=== PATIENT | female | born 2000 | race Caucasian/White ===

== ENCOUNTER 2020-06-19 09:03 | Emergency (ER) | payer OTHER ==
[~2020-06-19 09:03] MED LIST: ATARAX25 MG PO; BENTYL10 MG PO; CYMBALTA20 MG PO; FLEXERIL10 MG PO; GLUCOPHAGE XR750 MG PO; LODINE400 MG PO; MACROBID100 MG PO; MEDROL 4MG DOSEP4 MG PO; PEPCID AC20 MG PO; STOOL SOFTENER100 MG PO; VIBRAMYCIN100 M1 PO; ZOFRAN8 MG PO
[2020-06-19] MEDS ORDERED: ONDANSETRON ODT4 MG PO (11:09)
== END 2020-06-19 11:22 | disposition home or self-care (01) ==
LOC: FER 09:03
DX: R11.2 Nausea with vomiting, unspecified (principal); Z87.19 Personal history of other diseases of the digestive system; Z98.84 Bariatric surgery status
CPT/HCPCS: 99283; J2405

== ENCOUNTER 2021-01-02 20:44 | Emergency (ER) | payer OTHER ==
[~2021-01-02 20:44] MED LIST changes: +ONDANSETRON ODT4 MG PO
[2021-01-02 21:53] LABS: BASOPHIL 0.5 % (0-2); EOSINOPHIL 1.3 % (0-5); HCT 39.5 % (37.0-47.0); HGB 12.7 g/dl (12.5-16.0); MCH 27.5 pg (25.0-31.0); MCHC 32.2 g/dL (32.0-36.0); MCV 85.7 fL (78.0-100.0); MONOCYTE 8.5 % (0-12); MPV 9.7 fL (6.0-9.5); NEUTROPHIL 69.3 % (41-80); NRBC 0; PLT 244 K/uL (150-400); RBC 4.61 M/uL (4.20-5.40); RDW 13.9 % (11.5-14.0); WBC 7.9 K/uL (4.0-10.5)
[2021-01-02 22:03] LABS: BILIRUBIN NEGATIVE (NEGATIVE); BLOOD NEGATIVE Ery/uL (NEGATIVE); CLARITY CLEAR (CLEAR); COLOR YELLOW (YELLOW); GLUCOSE (U) NORMAL (NORMAL); LEUKOCYTES 2+ Leu/uL (NEGATIVE); NITRITE NEGATIVE (NEGATIVE); PROTEIN NEGATIVE (NEGATIVE); SPECIFIC GRAVITY >=1.030 (1.001-1.030); UROBILINOGEN 0.2 mg/dL (0.2-1.0)
[2021-01-02 22:10] LABS: BACTERIA 1+; URINARY WBC 20-50
[2021-01-02 22:11] LABS: ALBUMIN 3.6 g/dL (3.4-5.0); BILIRUBIN - TOTAL 0.5 mg/dL (0.2-1.0); BUN/CREAT RATIO (CALC) 14.5 RATIO; CREATININE 0.62 mg/dL (0.51-0.95); GLOBULIN (CALCULATION) 3.6 g/dL; POTASSIUM 3.9 mmol/L (3.5-5.1); TOTAL PROTEIN 7.2 g/dL (6.4-8.2)
[2021-01-02] MEDS ORDERED: ONDANSETRON ODT4 MG PO (23:36)
== END 2021-01-02 23:50 | disposition home or self-care (01) ==
LOC: FER 20:44
PROVIDERS: Emergency Medicine
DX: U07.1 COVID-19 (principal); R10.11 Right upper quadrant pain; Z98.84 Bariatric surgery status
CPT/HCPCS: 36415; 80053; 81001; 82150; 83690; 85025; J1885; J2270; J2405; U0002